=== PATIENT | male | born 1935 | race Caucasian/White ===

== ENCOUNTER → 2016-09-20 | Outpatient (CLI) | payer MEDICARE, BC | LOC: PCVCCLINIC 11:30 | PROVIDERS: ATTEND Internal Medicine Cardiovascular Disease | DX: I25.5 Ischemic cardiomyopathy (principal); E78.00 Pure hypercholesterolemia, unspecified; I25.10 Atherosclerotic heart disease of native coronary artery without angina pectoris; I65.29 Occlusion and stenosis of unspecified carotid artery; I73.9 Peripheral vascular disease, unspecified; Z95.0 Presence of cardiac pacemaker | CPT/HCPCS: 93005; G0463 ==

== ENCOUNTER → 2017-04-06 | Outpatient (CLI) | payer MEDICARE, BC ==
[~2017-04-06] MED LIST: REGADENOSON 0.4 MG/5 ML DISP.SYRIN. IV ONE
--- NOTE | 2017-04-06 12:31 | PCVCIMAG ---
EXAM: BILATERAL CAROTID DUPLEX INDICATION: Carotid Occlusive Disease. FINDINGS: Doppler Measurements (centimeters per second): RIGHT: Peak CCA-49, Peak ECA-68, Diastolic ICA-10, Peak ICA-42, ICA/CCA Ratio-0.9. LEFT: Peak CCA-60, Peak ECA-74, Diastolic ICA-19, Peak ICA-55, ICA/CCA Ratio-0.9. RIGHT CAROTID: The carotid bulb has mild plaque. The proximal internal carotid artery shows <40% stenosis. The common carotid artery shows no significant stenosis. The external carotid artery shows no significant stenosis. LEFT CAROTID: The carotid bulb has mild plaque. The proximal internal carotid artery shows <40% stenosis. The common carotid artery shows no significant stenosis. The external carotid artery shows no significant stenosis. Antegrade flow in both vertebral arteries. IMPRESSION: <40% stenosis of the right internal carotid artery with mild plaque. <40% stenosis of the left internal carotid artery with mild plaque. LOC:[place] [id number]
--- NOTE | 2017-04-06 16:26 | PCVCIMAG ---
APPROVED REPORT Exam: Nuclear Stress Test BMI: 0 NM EXAM: Myocardial Perfusion REST/STRESS Imaging Protocol: Rest Tc-99m/Stress Tc-99m 1 day Resting Data Rest SPECT myocardial perfusion imaging was performed in supine position 45 minutes following the intravenous injection of 11.3 mCi of Tc-99m Sestamibi. Time of rest injection: 1200 Date: 04/06/2017 Pharmacologic Stress Pharmacologic stress test was performed by injecting Regadenoson 0.4 mg IV push followed by the intravenous injection of 34.3 mCi of Tc-99m Sestamibi. Time of stress injection: 1310 Date: 04/06/2017 Administration Route: IV Administration Site: Right Arm Gated Stress SPECT was performed 45 minutes after stress injection. The images were gated to evaluate regional wall motion and calculate left ventricular ejection fraction. Study Quality Study: Good Study Data Post stress, the left ventricular ejection was 43%.. SSS: 13 SRS: 7 SDS: 6 TID = 0.97. Perfusion Medium sized area of moderate reversible ischemia involving the mid/apical inferior and apical anterior/septal/lateral left ventricle consistent with a left anterior descending and right coronary distribution. Patient has known occlusion of the LAD and [place] to LAD. Wall Motion Mildly decreased left ventricular systolic function. Nuclear Conclusion Medium sized area of moderate reversible ischemia involving the mid/apical inferior and apical anterior/septal/lateral left ventricle consistent with a left anterior descending and right coronary distribution. Post stress, the left ventricular ejection was 43%.. No prior study available for comparison. Interpreted by: Reese Oliveros MD Electronically Approved: 04/06/2017 15:15:47 Stress Test Details Stress Test: Pharmacologic stress testing performed using 0.4 mg of regadenoson per 5 mL given IV over 10 seconds. Reason for pharmacologic stress test: physical limitation. 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 Stress ECG Conclusion ECG: Non-ischemic <Conclusion> ECG: Non-ischemic
== END | disposition home or self-care (01) ==
LOC: PCVCIMAG 11:32
PROVIDERS: ATTEND Internal Medicine Cardiovascular Disease
DX: I65.23 Occlusion and stenosis of bilateral carotid arteries (principal); I44.7 Left bundle-branch block, unspecified; I44.0 Atrioventricular block, first degree; I10 Essential (primary) hypertension; I25.810 Atherosclerosis of coronary artery bypass graft(s) without angina pectoris; I42.9 Cardiomyopathy, unspecified; E78.00 Pure hypercholesterolemia, unspecified; Z95.0 Presence of cardiac pacemaker; E11.9 Type 2 diabetes mellitus without complications; Z79.82 Long term (current) use of aspirin; Z95.1 Presence of aortocoronary bypass graft; Z90.49 Acquired absence of other specified parts of digestive tract; Z88.0 Allergy status to penicillin; Z88.2 Allergy status to sulfonamides
CPT/HCPCS: 78452; 80061; 93005; 93017; 93880; A9500; G0463; J2785

== ENCOUNTER → 2017-08-10 | Outpatient (CLI) | payer MEDICARE, BC ==
--- NOTE | 2017-08-10 15:46 | PCVCIMAG ---
APPROVED REPORT Study performed: 08/10/2017 12:05:53 EXAM: Comprehensive 2D, Doppler, and color-flow Echocardiogram Patient Location: Echo lab Status: routine BSA: 1.81 HR: 67 bpm Rhythm: NSR Other Information Study Quality: Good Indications CAD CABG, Pacemaker, Dizziness 2D Dimensions LVEF(%): 66.76 (>50%) IVSd: 15.22 (7-11mm)LVOT Diam: 22.84 (18-24mm) LVDd: 51.08 mm PWd: 10.60 (7-11mm)Ascending Ao: 36.82 (22-36mm) LVDs: 32.11 (25-40mm) Left Atrium: 54.26 (27-40mm) Aortic Root: 37.22 mm LV Single Plane 4CH: 46.21 % LV Single Plane 2CH: 42.63 %Maxwell's LVEF: 44.42 % Biplane EF: 45.1 % Volumes Left Atrial Volume (Systole) Single Plane 4CH: 52.63 mLSingle Plane 2CH: 72.11 mL LA ESV Index: 34.00 mL/m2 Aortic Valve AoV Peak Shorty.: 1.18 m/s AO Peak Gr.: 5.59 mmHgLVOT Max P.10 mmHg LVOT Max V: 0.72 m/s HEBERT Vmax: 2.51 cm2 AI Vmax: 4.46 m/s AI [place]: 2.61 m/s2 AI PHT: 495.21 ms Mitral Valve E/A Ratio: 0.7 MV Decel. Time: 289.19 ms MV E Max Shorty.: 0.65 m/s MV A Shorty.: 0.92 m/s Pulmonary Valve PV Peak Gr.: 2.30 mmHg Tricuspid Valve TR Peak Shorty.: 2.07 m/s TR Peak Gr.: 17.11 mmHg Left Ventricle The left ventricle is normal size. There is normal LV segmental wall motion. There is normal left ventricular wall thickness. Left ventricular systolic function is normal. The left ventricular ejection fraction is within the normal range. LVEF is 40-45%. The left ventricular diastolic function is normal. Right Ventricle The right ventricle is normal size. The right ventricular systolic function is normal. Pacemaker lead is present in the right ventricle. Atria The left atrium size is normal. The right atrium size is normal. Pacemaker lead is present in the right atrium. Aortic Valve The aortic valve is normal in structure. Mild aortic regurgitation. There is no aortic valvular stenosis. Mitral Valve The mitral valve is normal in structure. Mild to moderate mitral regurgitation. Very eccentric jet. No evidence of mitral valve stenosis. Tricuspid Valve The tricuspid valve is normal in structure. Trace tricuspid regurgitation. Pulmonary artery pressure is 24mmhg. Pulmonic Valve The pulmonary valve is normal in structure. Trace pulmonic regurgitation. Great Vessels The aortic root is normal in size. IVC is normal in size and collapses with >50% inspiration Pericardium There is no pericardial effusion. <Conclusion> The left ventricle is normal size. LVEF is 40-45%. The left ventricular diastolic function is normal. The right ventricle is normal size. The left atrium size is normal. The right atrium size is normal. Pacemaker lead is present in the right atrium. Mild aortic regurgitation. There is no aortic valvular stenosis. Mild to moderate mitral regurgitation. Very eccentric jet. Trace tricuspid regurgitation. Pulmonary artery pressure is 24mmhg. There is no pericardial effusion.
== END | disposition home or self-care (01) ==
LOC: PCVCIMAG 12:00
PROVIDERS: ATTEND Internal Medicine Cardiovascular Disease
DX: I08.0 Rheumatic disorders of both mitral and aortic valves (principal); I25.10 Atherosclerotic heart disease of native coronary artery without angina pectoris; I25.5 Ischemic cardiomyopathy; I10 Essential (primary) hypertension; E78.00 Pure hypercholesterolemia, unspecified; I65.29 Occlusion and stenosis of unspecified carotid artery; I49.5 Sick sinus syndrome; R42 Dizziness and giddiness; I47.2 Ventricular tachycardia; Z95.1 Presence of aortocoronary bypass graft; Z79.82 Long term (current) use of aspirin; Z79.899 Other long term (current) drug therapy
CPT/HCPCS: 93005; 93306; G0463

== ENCOUNTER → 2018-04-12 | Outpatient (CLI) | payer MEDICARE, BC | END | disposition home or self-care (01) | LOC: PCVCIMAG 12:59 | DX: I08.0 Rheumatic disorders of both mitral and aortic valves (principal); I25.10 Atherosclerotic heart disease of native coronary artery without angina pectoris; I10 Essential (primary) hypertension; I47.2 Ventricular tachycardia; I49.5 Sick sinus syndrome; I73.9 Peripheral vascular disease, unspecified; I25.5 Ischemic cardiomyopathy; Z95.0 Presence of cardiac pacemaker; E78.00 Pure hypercholesterolemia, unspecified; E11.9 Type 2 diabetes mellitus without complications; E78.5 Hyperlipidemia, unspecified; Z88.8 Allergy status to other drugs, medicaments and biological substances; Z88.0 Allergy status to penicillin; Z79.899 Other long term (current) drug therapy | CPT/HCPCS: 80061; 93005; 93306; G0463 ==

== ENCOUNTER → 2018-10-06 | Outpatient (CLI) | payer MEDICARE, BC ==
--- NOTE | 2018-10-06 11:40 | PCVCIMAG ---
EXAM: BILATERAL CAROTID DUPLEX INDICATION: Carotid Occlusive Disease. FINDINGS: Doppler Measurements (centimeters per second): RIGHT: Peak CCA-44, Peak ECA-54, Diastolic ICA-8, Peak ICA-41, ICA/CCA Ratio-0.9. LEFT: Peak CCA-60, Peak ECA-56, Diastolic ICA-9, Peak ICA-38, ICA/CCA Ratio-0.7. RIGHT CAROTID: The carotid bulb has minimal plaque. The proximal internal carotid artery shows no significant stenosis. The common carotid artery shows no significant stenosis. The external carotid artery shows no significant stenosis. LEFT CAROTID: The carotid bulb has mild plaque. The proximal internal carotid artery shows <40% stenosis. The common carotid artery shows no significant stenosis. The external carotid artery shows no significant stenosis. Antegrade flow in both vertebral arteries. IMPRESSION: No significant stenosis of the right internal carotid artery with minimal plaque. <40% stenosis of the left internal carotid artery with mild plaque. LOC:[place] [id number]
== END | disposition home or self-care (01) ==
LOC: PCVCCLINIC 10:45
PROVIDERS: ATTEND Internal Medicine Cardiovascular Disease
DX: I25.810 Atherosclerosis of coronary artery bypass graft(s) without angina pectoris (principal); R42 Dizziness and giddiness; R55 Syncope and collapse; E78.00 Pure hypercholesterolemia, unspecified; I10 Essential (primary) hypertension; E11.9 Type 2 diabetes mellitus without complications; K21.9 Gastro-esophageal reflux disease without esophagitis; Z95.1 Presence of aortocoronary bypass graft; Z79.82 Long term (current) use of aspirin
CPT/HCPCS: 93005; 93880; G0463

== ENCOUNTER → 2019-04-11 | Outpatient (CLI) | payer MEDICARE, BC ==
--- NOTE | 2019-04-11 12:47 | PCVCIMAG ---
APPROVED REPORT Imaging Protocol: Rest Tc-99m/Stress Tc-99m 1 day Study performed: 04/11/2019 10:21:02 Indication: Cardiomyopathy, CAD Patient Location: Out-Patient Stress Nurse: Taty Chen RN HI Tech:Zara Walker [facility] Ht: 5 ft 9 in Wt: 155 lbs BSA: 1.85 m2 HR: 61 bpm BP: 150/77 mmHg BMI: 22.8 Rhythm: Pacemaker with PVC's Medical History Medical History: Hyperlipidemia, HTN, PVD Medications: Amiodarone, Amlodipine, ASA, Lovastatin, Prilosec, Ranexa, Hyzaar Allergies: PCN, Sulfa Cardiac Risk Factors: Age Previous Cardiac Procedures: 2010 CABG, hx of VT episodes Pretest Chest Pain Characteristics: No chest pain Exercise History: Sedentary Resting Data Rest SPECT myocardial perfusion imaging was performed in supine position 45 minutes following the intravenous injection of 10.3 mCi of Tc-99m Sestamibi. Time of rest injection: 0930 Date: 04/11/2019 Administration Route: IV Administration Site: Right Arm Pharmacologic Stress Pharmacologic stress test was performed by injecting Regadenoson 0.4 mg IV push over 10-15 seconds immediately followed by the intravenous injection of 33.2 mCi of Tc-99m Sestamibi. Time of stress injection: 1100 Date: 04/11/2019 Administration Route: IV Administration Site: Right Arm Gated Stress SPECT was performed 45 minutes after stress injection. The images were gated to evaluate regional wall motion and calculate left ventricular ejection fraction. Stress Test Details Stress Test: Pharmacologic stress testing performed using 0.4 mg of regadenoson per 5 mL given IV over 10 seconds. Reason for pharmacologic stress test: physical limitation, pacemaker. HRMax Heart Rate (APMHR): 137 bpm Resting HR: 61 bpmTarget HR (85% APMHR): 116 bpm Max HR Achieved: 60 bpm % of APMHR: 43 Recovery HR: 60 bpm BP Resting BP: 150/77 mmHg Max BP: 156/78 mmHg Recovery BP: 139/64 mmHg ECG Resting ECG: Pacemaker with PVC's Stress ECG: Pacemaker with PVC's Arrhythmia: PVC's Recovery ECG: Pacemaker with PVC's Clinical Reason for Termination: Completed protocol Stress Symptoms: Lightheaded Symptoms resolved with caffeine. Stress ECG Conclusion non diagnoastic paced Study Quality Study: Good Study Data Post stress, the left ventricular ejection was 41%.. SSS: 16 SRS: 9 SDS: 7 TID = 1.03. 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 Post stress, the left ventricular ejection was 41%. No change since prior study dated 2016. Interpreted by: Reese Oliveros MD Electronically Approved: 04/11/2019 10:31:05 <Conclusion> non diagnoastic paced
== END ==
LOC: PCVCIMAG 09:13
PROVIDERS: ATTEND Internal Medicine Cardiovascular Disease
DX: I25.810 Atherosclerosis of coronary artery bypass graft(s) without angina pectoris (principal); I25.5 Ischemic cardiomyopathy; Z95.1 Presence of aortocoronary bypass graft; I47.2 Ventricular tachycardia; I49.5 Sick sinus syndrome
CPT/HCPCS: 78452; 93005; 93017; 93280; A9500; G0463; J2785